=== PATIENT | female | born 1965 | race Asian ===

== ENCOUNTER → 2017-12-16 | Outpatient (CLI) | payer OTHER ==
[~2017-12-16] MED LIST: FENTANYL PF 100 MCG/2ML ONE; FLUMAZENIL 0.1 MG/1 ML, 5ML ONE; GADOBUTROL 7.5 MMOL/7.5 ML PFS ONE; MIDAZOLAM 1 MG/ML, 5ML ONE; NALOXONE 1 MG/ML, 2ML ONE
== END | disposition home or self-care (01) ==
LOC: RAD 07:08
PROVIDERS: ATTEND Internal Medicine
DX: D32.0 Benign neoplasm of cerebral meninges (principal); G43.909 Migraine, unspecified, not intractable, without status migrainosus
CPT/HCPCS: 70553; 99156; 99157; A9585; J2250; J3010; J2310

== ENCOUNTER → 2018-07-22 | Outpatient (CLI) | payer OTHER ==
[~2018-07-22] MED LIST changes: +ASCO250T2 PO; +CALC-534 PO; +CARV10CP PO; +CARV3.1212 PO; -FENTANYL PF 100 MCG/2ML ONE; -FLUMAZENIL 0.1 MG/1 ML, 5ML ONE; -GADOBUTROL 7.5 MMOL/7.5 ML PFS ONE; -MIDAZOLAM 1 MG/ML, 5ML ONE; +MULT-516 PO; -NALOXONE 1 MG/ML, 2ML ONE; +RABE20TA26 PO
[2018-07-22 08:44] LABS: BASOPHILS % (AUTO) 0 % (0-1); EOSINOPHILS # (AUTO) 0.08 x10^3/uL (0-0.4); EOSINOPHILS % (AUTO) 1 % (1-7); LYMPHOCYTES # (AUTO) 1.42 x10^3/uL (1-3.4); LYMPHOCYTES % (AUTO) 17 % (22-44); MD NO; MEAN CORPUSCULAR HEMOGLOBIN 32.9 pg (27.0-34.8); MEAN CORPUSCULAR HGB CONC 34.2 g/dL (32.4-35.8); MEAN CORPUSCULAR VOLUME 96.1 fL (80-100); MEAN PLATELET VOLUME 7.5 fL (7.4-10.4); MONOCYTES # (AUTO) 0.37 x10^3/uL (0.2-0.8); MONOCYTES % (AUTO) 5 % (2-9); NEUTROPHILS # (AUTO) 6.39 x10^3/uL (1.8-6.8); NEUTROPHILS % (AUTO) 77 % (42-75); PLATELET COUNT 245 x10^3/uL (130-400); RED BLOOD COUNT 4.65 x10^6/uL (3.82-5.3); RED CELL DISTRIBUTION WIDTH 12.5 % (9.6-15.2)
[2018-07-22 08:47] LABS: MICROSCOPIC NOT IND
[2018-07-22 08:53] LABS: CULTURE INDICATED? NO
[2018-07-22 08:57] LABS: ALANINE AMINOTRANSFERASE 30 U/L (12-78); ALBUMIN 4.3 g/dL (3.4-5.0); ANION GAP 6 mmol/L (5-15); CALCIUM 9.5 mg/dL (8.5-10.1); CHLORIDE 103 mmol/L (98-107); CREATININE 0.99 mg/dL (0.55-1.02)
[2018-07-22 08:59] LABS: ALKALINE PHOSPHATASE 74 U/L (45-117)
[2018-07-22 09:17] LABS: INTERNATIONAL NORMALIZED RATIO 1.04 (0.93-1.1); PROTHROMBIN TIME 10.7 Seconds (9.6-11.5)
== END | disposition home or self-care (01) ==
LOC: STAR 07:38
PROVIDERS: ATTEND Neurological Surgery
DX: Z01.818 Encounter for other preprocedural examination (principal); D32.0 Benign neoplasm of cerebral meninges
CPT/HCPCS: 36415; 80053; 81003; 85025; 85610; 85730; 93005

== ENCOUNTER → 2018-07-24 | Outpatient (CLI) | payer OTHER ==
[~2018-07-24] MED LIST changes: +FENTANYL PF 100 MCG/2ML ONE; +FLUMAZENIL 0.1 MG/1 ML, 5ML ONE; +GADOBUTROL 7.5 MMOL/7.5 ML PFS ONE; +MIDAZOLAM 1 MG/ML, 5ML ONE; +NALOXONE 1 MG/ML, 2ML ONE
== END | disposition home or self-care (01) ==
LOC: RAD 08:19
PROVIDERS: ATTEND Neurological Surgery
DX: G93.89 Other specified disorders of brain (principal); R42 Dizziness and giddiness
CPT/HCPCS: 70553; 99156; 99157; A9585; J2250; J3010; J2310

== ENCOUNTER 2018-08-06 05:28 | Inpatient (IN) | payer OTHER ==
[~2018-08-06] VITALS: Ht 160 cm; Wt 47.0 kg
[~2018-08-06 05:28] MED LIST changes: -FENTANYL PF 100 MCG/2ML ONE; -FLUMAZENIL 0.1 MG/1 ML, 5ML ONE; -GADOBUTROL 7.5 MMOL/7.5 ML PFS ONE; -MIDAZOLAM 1 MG/ML, 5ML ONE; -NALOXONE 1 MG/ML, 2ML ONE
[2018-08-06] MEDS ORDERED: LACTATED RINGERS 1,000 ML IV SCH (05:54)
[2018-08-06] MEDS ORDERED: BUPIVACAINE/PF-EPI 0.5% 1:200K ONE (06:01)
[2018-08-06] MEDS ORDERED: THROMBIN 20,000 UNIT VIAL TP ONE (06:01)
[2018-08-06] MEDS ORDERED: BACITRACIN 50,000 UNIT ONE (06:02)
[2018-08-06] MEDS ORDERED: FENTANYL PF 250 MCG/5ML ONE (06:14)
[2018-08-06] MEDS ORDERED: ROCURONIUM 10MG/ML,5ML ONE (06:19)
[2018-08-06] MEDS ORDERED: PROPOFOL 10 MG/ML, 20ML ONE (06:19)
[2018-08-06] MEDS ORDERED: NEOSTIGMINE 1 MG/ML, 10ML ONE (06:20)
[2018-08-06] MEDS ORDERED: GLYCOPYRROLATE 0.4 MG/2 ML, 2ML ONE (06:20)
[2018-08-06] MEDS ORDERED: ONDANSETRON 2MG/ML, 2ML ONE (06:21)
[2018-08-06] MEDS ORDERED: DEXAMETHASONE 4 MG/ML, 1ML ONE ×3 (06:21→07:48)
[2018-08-06] MEDS ORDERED: CEFAZOLIN 1,000 MG ONE ×2 (06:21)
[2018-08-06] MEDS ORDERED: SODIUM CHLORIDE 0.9% PF 10ML ONE (06:21)
[2018-08-06] MEDS ORDERED: PROPOFOL 50 ML ONE (06:23)
[2018-08-06] MEDS ORDERED: FUROSEMIDE 20 MG/2 ML ONE (06:30)
[2018-08-06] MEDS ORDERED: MANNITOL PMX 20% 0 ML ONE (06:31)
[2018-08-06 06:56] LABS: HCG UR SG 1.015 (1.003-1.030)
[2018-08-06] MEDS ORDERED: ONDANSETRON 2MG/ML, 2ML IV PRN (07:00)
[2018-08-06] MEDS ORDERED: ONDANSETRON ODT 8 MG PO PRN (07:00)
[2018-08-06] MEDS ORDERED: OXYcodone 5 MG/5 ML ORAL.SOL UDC PO PRN (07:00)
[2018-08-06] MEDS ORDERED: PROMETHAZINE 25 MG/ML, 1ML IV PRN (07:00)
[2018-08-06] MEDS ORDERED: HYDROmorphone 2 MG/ML, 1ML IV PRN (07:00)
[2018-08-06] MEDS ORDERED: hydrALAzine 20 MG/ML, 1ML IV PRN (07:00)
[2018-08-06] MEDS ORDERED: LABETALOL 5MG/ML, 20ML IV PRN (07:00)
[2018-08-06] MEDS ORDERED: MEPERIDINE/PF 25MG/0.5ML IVPush PRN (07:00)
[2018-08-06] MEDS ORDERED: MORPHINE SULFATE 4 MG/ML, 1ML IVPush PRN (07:00)
[2018-08-06] MEDS ORDERED: PROMETHAZINE 25 MG/ML, 1ML IM PRN ×2 (07:00)
[2018-08-06] MEDS ORDERED: FENTANYL PF 100 MCG/2ML IV PRN (07:00)
[2018-08-06] MEDS ORDERED: PHENYLEPHRINE 10 MG/ML ONE (07:25)
[2018-08-06] MEDS ORDERED: LEVETIRACETAM 1,000 MG in SODIUM CHLORIDE 0.9% 100 ML IV ONE (08:30)
[2018-08-06] MEDS ORDERED: LABETALOL 5MG/ML, 20ML ONE (10:20)
[2018-08-06] MEDS ORDERED: hydrALAzine 20 MG/ML, 1ML ONE (10:34)
[2018-08-06] MEDS ORDERED: MORPHINE SULFATE 4 MG/ML, 1ML ONE (10:35)
[2018-08-06] MEDS ORDERED: NS + 20MEQ KCL 1,000 ML IV SCH (11:00)
[2018-08-06] MEDS ORDERED: MEPERIDINE/PF 50 MG/ML ONE (11:05)
[2018-08-06] MEDS ORDERED: LABETALOL 250 MG in DEXTROSE 5% 200 ML IV PRN (13:00)
[2018-08-06] MEDS ORDERED: BISACODYL 10 MG SUPP PR PRN (13:00)
[2018-08-06] MEDS ORDERED: MAGNESIUM HYDROXIDE 8%, 30ML UDC PO PRN (13:00)
[2018-08-06] MEDS: NS + 20MEQ KCL 1,000 ML IV SCH (13:00)
[2018-08-06] MEDS: ONDANSETRON 2MG/ML, 2ML IV PRN (14:25)
[2018-08-06] MEDS: morphine SULFATE 10 MG/ML, 1ML IV PRN ×2 (15:24→20:31)
[2018-08-06] MEDS: CEFAZOLIN PMX 1GM/50ML 50 ML IVPB SCH ×2 (16:16→23:13)
[2018-08-06 18:11] VITALS: BP 120/65
[2018-08-06 19:00] VITALS: BP 126/65
[2018-08-06 20:00] VITALS: BP 131/69
[2018-08-06] MEDS: LEVETIRACETAM 500 MG in SODIUM CHLORIDE 0.9% 100 ML IV SCH (20:10)
[2018-08-07] MEDS: morphine SULFATE 10 MG/ML, 1ML IV PRN ×2 (00:25→07:41)
[2018-08-07] MEDS: ONDANSETRON 2MG/ML, 2ML IV PRN ×4 (00:25→22:10)
[2018-08-07] MEDS: NS + 20MEQ KCL 1,000 ML IV SCH ×2 (01:29→15:17)
[2018-08-07 03:35] LABS: BASOPHILS # (AUTO) 0.05 x10^3/uL (0-0.1); BASOPHILS % (AUTO) 0 % (0-1); EOSINOPHILS % (AUTO) 0 % (1-7); LYMPHOCYTES # (AUTO) 0.76 x10^3/uL (1-3.4); LYMPHOCYTES % (AUTO) 5 % (22-44); MD NO; MEAN CORPUSCULAR HEMOGLOBIN 33.7 pg (27.0-34.8); MEAN CORPUSCULAR HGB CONC 34.3 g/dL (32.4-35.8); MEAN PLATELET VOLUME 7.8 fL (7.4-10.4); MONOCYTES # (AUTO) 0.94 x10^3/uL (0.2-0.8); MONOCYTES % (AUTO) 6 % (2-9); NEUTROPHILS # (AUTO) 13.15 x10^3/uL (1.8-6.8); NEUTROPHILS % (AUTO) 88 % (42-75); PLATELET COUNT 187 x10^3/uL (130-400); RED BLOOD COUNT 3.51 x10^6/uL (3.82-5.3); RED CELL DISTRIBUTION WIDTH 12.5 % (9.6-15.2)
[2018-08-07 03:45] LABS: ANION GAP 9 mmol/L (5-15); CALCIUM 8.1 mg/dL (8.5-10.1); CHLORIDE 111 mmol/L (98-107)
[2018-08-07 03:46] LABS: CREATININE 0.76 mg/dL (0.55-1.02)
[2018-08-07 04:00] VITALS: BP 103/51
[2018-08-07] MEDS: CALCIUM/VITAMIN D3 250-125 TABLET PO SCH ×2 (09:00→09:47)
[2018-08-07] MEDS: MULTIVITAMIN 1 TABLET PO SCH ×2 (09:00→09:47)
[2018-08-07] MEDS: SENNA/DOCUSATE TABLET PO SCH ×2 (09:00→09:48)
[2018-08-07] MEDS: LEVETIRACETAM 500 MG in SODIUM CHLORIDE 0.9% 100 ML IV SCH (09:46)
[2018-08-07] MEDS: CARVEDILOL 3.125 MG TABLET PO SCH (09:46)
[2018-08-07] MEDS: PANTOPROZOLE 40MG TABLET PO SCH (09:47)
[2018-08-07] MEDS ORDERED: MORPHINE SULFATE 4 MG/ML, 1ML IV PRN (12:00)
[2018-08-07] MEDS ORDERED: LABETALOL 5MG/ML, 20ML IV PRN (12:00)
[2018-08-07] MEDS: OXYcodone/APAP 5/325MG TABLET PO PRN (14:18)
[2018-08-07 17:40] VITALS: BP 116/75
[2018-08-07 19:18] VITALS: BP 115/73
[2018-08-07] MEDS: LEVETIRACETAM 500 MG TABLET PO SCH (22:19)
[2018-08-08 00:14] VITALS: BP 126/77
[2018-08-08] MEDS: OXYcodone/APAP 5/325MG TABLET PO PRN ×2 (02:00→14:36)
[2018-08-08] MEDS: NS + 20MEQ KCL 1,000 ML IV SCH ×2 (02:51→15:57)
[2018-08-08 04:17] VITALS: BP 126/75
[2018-08-08] MEDS: ONDANSETRON 2MG/ML, 2ML IV PRN ×3 (04:36→21:31)
[2018-08-08 06:18] LABS: ANION GAP 8 mmol/L (5-15); CALCIUM 8.3 mg/dL (8.5-10.1); CHLORIDE 107 mmol/L (98-107)
[2018-08-08 06:19] LABS: CREATININE 0.76 mg/dL (0.55-1.02)
[2018-08-08 06:28] LABS: BASOPHILS # (AUTO) 0.02 x10^3/uL (0-0.1); BASOPHILS % (AUTO) 0 % (0-1); EOSINOPHILS # (AUTO) 0.01 x10^3/uL (0-0.4); EOSINOPHILS % (AUTO) 0 % (1-7); LYMPHOCYTES # (AUTO) 1.03 x10^3/uL (1-3.4); LYMPHOCYTES % (AUTO) 12 % (22-44); MD NO; MEAN CORPUSCULAR HEMOGLOBIN 32.4 pg (27.0-34.8); MEAN CORPUSCULAR HGB CONC 33.5 g/dL (32.4-35.8); MEAN CORPUSCULAR VOLUME 96.6 fL (80-100); MEAN PLATELET VOLUME 7.8 fL (7.4-10.4); MONOCYTES % (AUTO) 7 % (2-9); NEUTROPHILS # (AUTO) 6.78 x10^3/uL (1.8-6.8); NEUTROPHILS % (AUTO) 80 % (42-75); PLATELET COUNT 178 x10^3/uL (130-400); RED BLOOD COUNT 3.39 x10^6/uL (3.82-5.3); RED CELL DISTRIBUTION WIDTH 12.6 % (9.6-15.2)
[2018-08-08] MEDS: PANTOPROZOLE 40MG TABLET PO SCH (07:32)
[2018-08-08 08:00] VITALS: BP 136/77
[2018-08-08] MEDS: SENNA/DOCUSATE TABLET PO SCH (09:00)
[2018-08-08] MEDS: CARVEDILOL 3.125 MG TABLET PO SCH (09:02)
[2018-08-08] MEDS: MULTIVITAMIN 1 TABLET PO SCH (09:02)
[2018-08-08] MEDS: CALCIUM/VITAMIN D3 250-125 TABLET PO SCH (09:03)
[2018-08-08] MEDS: LEVETIRACETAM 500 MG TABLET PO SCH ×2 (10:08→22:16)
[2018-08-08 14:31] VITALS: BP 137/85
[2018-08-08 19:32] VITALS: BP 130/86
[2018-08-09] MEDS: OXYcodone/APAP 5/325MG TABLET PO PRN ×2 (00:16→15:03)
[2018-08-09 01:34] VITALS: BP 135/86
[2018-08-09 03:53] VITALS: BP 131/87
[2018-08-09] MEDS: NS + 20MEQ KCL 1,000 ML IV SCH ×2 (04:02→17:00)
[2018-08-09] MEDS: ONDANSETRON 2MG/ML, 2ML IV PRN (04:02)
[2018-08-09 05:12] LABS: BASOPHILS # (AUTO) 0.02 x10^3/uL (0-0.1); BASOPHILS % (AUTO) 0 % (0-1); EOSINOPHILS # (AUTO) 0.06 x10^3/uL (0-0.4); EOSINOPHILS % (AUTO) 1 % (1-7); LYMPHOCYTES # (AUTO) 1.16 x10^3/uL (1-3.4); LYMPHOCYTES % (AUTO) 16 % (22-44); MD NO; MEAN CORPUSCULAR HEMOGLOBIN 32.9 pg (27.0-34.8); MEAN CORPUSCULAR HGB CONC 34.1 g/dL (32.4-35.8); MEAN CORPUSCULAR VOLUME 96.6 fL (80-100); MEAN PLATELET VOLUME 7.5 fL (7.4-10.4); MONOCYTES # (AUTO) 0.59 x10^3/uL (0.2-0.8); MONOCYTES % (AUTO) 8 % (2-9); NEUTROPHILS # (AUTO) 5.61 x10^3/uL (1.8-6.8); NEUTROPHILS % (AUTO) 75 % (42-75); PLATELET COUNT 179 x10^3/uL (130-400); RED BLOOD COUNT 3.47 x10^6/uL (3.82-5.3); RED CELL DISTRIBUTION WIDTH 12.3 % (9.6-15.2)
[2018-08-09 05:20] LABS: ANION GAP 10 mmol/L (5-15); CALCIUM 8.4 mg/dL (8.5-10.1); CHLORIDE 106 mmol/L (98-107); CREATININE 0.72 mg/dL (0.55-1.02)
[2018-08-09] MEDS: PANTOPROZOLE 40MG TABLET PO SCH (08:12)
[2018-08-09] MEDS: CARVEDILOL 3.125 MG TABLET PO SCH (08:13)
[2018-08-09] MEDS: MULTIVITAMIN 1 TABLET PO SCH (08:14)
[2018-08-09] MEDS: SENNA/DOCUSATE TABLET PO SCH (08:14)
[2018-08-09] MEDS: CALCIUM/VITAMIN D3 250-125 TABLET PO SCH (08:14)
[2018-08-09] MEDS ORDERED: PROCHLORPERAZINE 10MG TABLET PO PRN (08:30)
[2018-08-09] MEDS ORDERED: PROCHLORPERAZINE 5 MG TABLET PO PRN (08:30)
[2018-08-09 09:57] VITALS: BP 124/82
[2018-08-09] MEDS: LEVETIRACETAM 500 MG TABLET PO SCH ×2 (09:57→21:21)
[2018-08-09 14:29] VITALS: BP 137/88
[2018-08-09 17:26] VITALS: BP 133/83
[2018-08-09 18:55] VITALS: BP 135/84
[2018-08-09] MEDS: ACETAMINOPHEN 325 MG TABLET PO PRN (21:21)
[2018-08-10 00:10] VITALS: BP 124/77
[2018-08-10 04:04] VITALS: BP 131/86
[2018-08-10 04:55] LABS: BASOPHILS # (AUTO) 0.02 x10^3/uL (0-0.1); BASOPHILS % (AUTO) 0 % (0-1); EOSINOPHILS # (AUTO) 0.13 x10^3/uL (0-0.4); EOSINOPHILS % (AUTO) 2 % (1-7); LYMPHOCYTES # (AUTO) 0.76 x10^3/uL (1-3.4); LYMPHOCYTES % (AUTO) 13 % (22-44); MD NO; MEAN CORPUSCULAR HEMOGLOBIN 33.2 pg (27.0-34.8); MEAN CORPUSCULAR HGB CONC 34.2 g/dL (32.4-35.8); MEAN CORPUSCULAR VOLUME 96.9 fL (80-100); MEAN PLATELET VOLUME 7.6 fL (7.4-10.4); MONOCYTES # (AUTO) 0.57 x10^3/uL (0.2-0.8); MONOCYTES % (AUTO) 10 % (2-9); NEUTROPHILS # (AUTO) 4.39 x10^3/uL (1.8-6.8); NEUTROPHILS % (AUTO) 75 % (42-75); PLATELET COUNT 197 x10^3/uL (130-400); RED CELL DISTRIBUTION WIDTH 11.9 % (9.6-15.2)
[2018-08-10 05:12] LABS: ANION GAP 9 mmol/L (5-15); CALCIUM 8.6 mg/dL (8.5-10.1); CHLORIDE 107 mmol/L (98-107); CREATININE 0.74 mg/dL (0.55-1.02)
[2018-08-10] MEDS: NS + 20MEQ KCL 1,000 ML IV SCH (05:30)
[2018-08-10 06:58] VITALS: BP 128/84
[2018-08-10] MEDS: CALCIUM/VITAMIN D3 250-125 TABLET PO SCH (07:49)
[2018-08-10] MEDS: CARVEDILOL 3.125 MG TABLET PO SCH (07:49)
[2018-08-10] MEDS: PANTOPROZOLE 40MG TABLET PO SCH (07:49)
[2018-08-10] MEDS: MULTIVITAMIN 1 TABLET PO SCH (07:49)
[2018-08-10] MEDS: SENNA/DOCUSATE TABLET PO SCH (07:50)
[2018-08-10] MEDS ORDERED: LEVE500T53 PO (09:51)
[2018-08-10] MEDS ORDERED: OXYC-302 PO (09:52)
[2018-08-10] MEDS: LEVETIRACETAM 500 MG TABLET PO SCH (10:13)
[2018-08-10] MEDS: ACETAMINOPHEN 325 MG TABLET PO PRN (11:31)
[2018-08-10 13:23] VITALS: BP 125/82
== END 2018-08-10 13:45 | disposition home or self-care (01) | DRG 27 ==
LOC: ORIP 05:28 → CCU 11:51 → 4NOR 08-07 17:36
PROVIDERS: ADMIT Neurological Surgery; ATTEND Neurological Surgery
PROC: 00B20ZZ Excision of Dura Mater, Open Approach (ICD-10-PCS; principal; 2018-08-06 07:00)
DX: D32.0 Benign neoplasm of cerebral meninges (principal); I10 Essential (primary) hypertension; K21.9 Gastro-esophageal reflux disease without esophagitis; M19.90 Unspecified osteoarthritis, unspecified site; G43.909 Migraine, unspecified, not intractable, without status migrainosus; Z79.899 Other long term (current) drug therapy; Z88.6 Allergy status to analgesic agent; Z88.1 Allergy status to other antibiotic agents; Z91.040 Latex allergy status; Z88.5 Allergy status to narcotic agent; Z88.8 Allergy status to other drugs, medicaments and biological substances; Z91.048 Other nonmedicinal substance allergy status; Z85.528 Personal history of other malignant neoplasm of kidney; Z82.49 Family history of ischemic heart disease and other diseases of the circulatory system; Z82.61 Family history of arthritis; Z83.6 Family history of other diseases of the respiratory system
CPT/HCPCS: 36415; 80048; 81025; 85025; 86850; 86900; 86923; 87081; 88307; 88331; C1713; C1729; G0378; J0690; J1100; J1953; J2175; J2405; J2704; J2710; J3010; J3480; C1781; J0360; J1940; J2270; J2370; J7120

== ENCOUNTER → 2018-10-27 | Outpatient (CLI) | payer OTHER ==
[~2018-10-27] MED LIST changes: +FENTANYL PF 100 MCG/2ML ONE; +GADOBUTROL 7.5 MMOL/7.5 ML PFS ONE; +LEVE500T53 PO; +MIDAZOLAM 1 MG/ML, 5ML ONE; +OXYC-302 PO
== END | disposition home or self-care (01) ==
LOC: RAD 07:17
PROVIDERS: ATTEND Neurological Surgery
DX: D32.0 Benign neoplasm of cerebral meninges (principal)
CPT/HCPCS: 70553; 99156; 99157; A9585; J2250; J3010

== ENCOUNTER → 2018-12-31 | Outpatient (CLI) | payer OTHER ==
[~2018-12-31] MED LIST changes: -GADOBUTROL 7.5 MMOL/7.5 ML PFS ONE
== END | disposition home or self-care (01) ==
LOC: RAD 06:42
PROVIDERS: ATTEND Registered Nurse
DX: T81.40XA Infection following a procedure, unspecified, initial encounter (principal); Z98.890 Other specified postprocedural states; Y83.8 Other surgical procedures as the cause of abnormal reaction of the patient, or of later complication, without mention of misadventure at the time of the procedure; Y92.89 Other specified places as the place of occurrence of the external cause
CPT/HCPCS: 70553; 99156; 99157; J2250; J3010

== ENCOUNTER → 2019-04-22 | Outpatient (CLI) | payer OTHER ==
[~2019-04-22] MED LIST changes: +GADOBUTROL 7.5 MMOL/7.5 ML PFS ONE
== END | disposition home or self-care (01) ==
LOC: RAD 07:37
PROVIDERS: ATTEND Neurological Surgery
DX: D32.0 Benign neoplasm of cerebral meninges (principal)
CPT/HCPCS: 70553; 99156; 99157; A9585; J2250; J3010

== ENCOUNTER 2020-04-11 11:56 | Outpatient (CLI) | payer OTHER ==
[~2020-04-11 11:56] MED LIST changes: +ASCO250T12 PO; -ASCO250T2 PO; -FENTANYL PF 100 MCG/2ML ONE; -GADOBUTROL 7.5 MMOL/7.5 ML PFS ONE; -MIDAZOLAM 1 MG/ML, 5ML ONE
[2020-04-11] MEDS ORDERED: MIDAZOLAM 1 MG/ML, 5ML ONE (12:47)
[2020-04-11] MEDS ORDERED: FENTANYL PF 100 MCG/2ML ONE (12:47)
[2020-04-11] MEDS ORDERED: GADOTERATE 7.5 MMOL/15 ML SYR ONE (13:25)
== END 2020-04-11 23:59 | disposition home or self-care (01) ==
LOC: RAD 11:56
PROVIDERS: ATTEND Neurological Surgery
DX: D32.0 Benign neoplasm of cerebral meninges (principal); I10 Essential (primary) hypertension; Z79.899 Other long term (current) drug therapy; Z85.528 Personal history of other malignant neoplasm of kidney; Z88.5 Allergy status to narcotic agent; Z88.8 Allergy status to other drugs, medicaments and biological substances; Z90.5 Acquired absence of kidney
CPT/HCPCS: 70553; 99156; 99157; A9575; J2250; J3010

== ENCOUNTER → 2020-04-14 | Outpatient (CLI) | payer OTHER ==
[~2020-04-14] MED LIST changes: -ASCO250T12 PO; +ASCO250T2 PO
== END | disposition home or self-care (01) ==
LOC: CFH 07:58
PROVIDERS: ATTEND Registered Nurse
DX: D32.0 Benign neoplasm of cerebral meninges (principal)
CPT/HCPCS: 70450